=== PATIENT | female | born 1975 | race Caucasian/White ===

== ENCOUNTER 2017-02-02 18:26 | Emergency (ER) | payer MEDICAID ==
[~2017-02-02] VITALS: Ht 157.5 cm; Wt 75.0 kg
[~2017-02-02 18:26] MED LIST: ALBUTEROL; DEPO PROVERA
[2017-02-02] MEDS ORDERED: IPRATROPIUM BROMIDE (0.02%) 0.5MG/2.5ML NEB HHN STA (19:19)
[2017-02-02] MEDS ORDERED: PREDNISONE 20MG TABLET PO STA (19:19)
[2017-02-02] MEDS ORDERED: ALBUTEROL (0.083%) 2.5MG/3ML NEB HHN STA ×2 (19:19→19:55)
[2017-02-02 22:40] VITALS: BP 126/75
== END 2017-02-02 23:27 | disposition home or self-care (01) ==
LOC: ER 20:50
DX: J18.9 Pneumonia, unspecified organism (principal); J45.909 Unspecified asthma, uncomplicated
CPT/HCPCS: 71010; 81025; 94640; 94644; 99285; J7512; J7611; Z7610

== ENCOUNTER 2018-05-29 18:27 | Emergency (ER) | payer MEDICAID, OTHER ==
[~2018-05-29] VITALS: Ht 149.9 cm; Wt 75.0 kg
[2018-05-29] MEDS ORDERED: IPRATROPIUM BROMIDE (0.02%) 0.5MG/2.5ML NEB HHN STA ×2 (18:56→22:28)
[2018-05-29] MEDS ORDERED: ALBUTEROL (0.083%) 2.5MG/3ML NEB HHN STA ×2 (18:56→22:28)
[2018-05-29] MEDS ORDERED: PREDNISONE 20MG TABLET PO STA (22:28)
[2018-05-30 01:02] VITALS: BP 130/79
== END 2018-05-30 01:04 | disposition home or self-care (01) ==
LOC: ER 18:27
DX: O26.891 Other specified pregnancy related conditions, first trimester (principal); J45.901 Unspecified asthma with (acute) exacerbation; Z3A.11 11 weeks gestation of pregnancy
CPT/HCPCS: 81025; 94640; 99284; J7512; J7611

== ENCOUNTER 2018-08-01 18:22 | Observation (INO) | payer OTHER ==
[~2018-08-01] VITALS: Ht 154.9 cm; Wt 76.7 kg
[2018-08-01] MEDS ORDERED: ACETAMINOPHEN 650MG/20.3ML UDC PO PRN (20:15)
[2018-08-01] MEDS ORDERED: DIPHENHYDRAMINE 25MG CAPSULE PO PRN (20:15)
[2018-08-01] MEDS ORDERED: DEXT 5%/LACTATED RINGERS 1,000 ML IV SCH (20:30)
[2018-08-01] MEDS ORDERED: AMPICILLIN 2,000 MG in SODIUM CHLORIDE 0.9% 100 ML IV NR (21:00)
[2018-08-01 21:31] LABS: BASOPHILS % 0.3 % (0.0-2.0); EOSINOPHILS % 1.2 % (0.0-5.0); HEMATOCRIT. 36.3 % (36.0-48.0); HEMOGLOBIN. 12.4 g/dL (12.0-16.0); LYMPHOCYTES % 16.3 % (20.0-50.0); MEAN CORPUSCULAR HEMOGLOBIN 29.1 pg (28.0-32.0); MEAN CORPUSCULAR VOLUME 85.5 fL (81.0-99.0); MEAN PLATELET VOLUME 9.4 fl (7.4-10.4); MONOCYTES % 5.7 % (2.0-8.0); NEUTROPHILS % 76.5 % (40.0-76.0); PLATELET 196 x1000/uL (130-400); RED BLOOD CELL COUNT 4.25 mill/uL (4.2-5.4); RED CELL DISTRIBUTION WIDTH 14.1 % (11.6-14.6)
[2018-08-01 21:35] LABS: CLARITY URINE CLEAR (CLEAR); COLOR URINE YELLOW (YELLOW); KETONES URINE NEGATIVE (NEGATIVE); LEUKOCYTE ESTERASE URINE 2+ (NEGATIVE); NITRITE URINE NEGATIVE (NEGATIVE); OCCULT BLOOD URINE 1+ (NEGATIVE); PH URINE 5.5 (4.5-8.0); PROTEIN URINE 1+ (NEGATIVE); SPECIFIC GRAVITY URINE 1.018 (1.005-1.030)
[2018-08-01 21:39] LABS: PARTIAL THROMBOPLASTIN TIME 27.5 sec (23.4-31.0); PROTHROMBIN TIME 9.6 sec (9.1-11.1)
[2018-08-01 21:40] LABS: CHLORIDE 105 mEq/L (98-107)
[2018-08-01 21:45] LABS: *COCAINE SCREEN URINE NEGATIVE (NEGATIVE); METHADONE URINE SCREEN NEGATIVE (NEGATIVE)
[2018-08-01 21:46] LABS: *AMPHETAMINES SCREEN URINE NEGATIVE (NEGATIVE); *BARBITURATES SCREEN URINE NEGATIVE (NEGATIVE); *BENZODIAZEPINES SCREEN URINE NEGATIVE (NEGATIVE); CANNABINOID URINE SCREEN NEGATIVE (NEGATIVE); OPIATES URINE SCREEN NEGATIVE (NEGATIVE); PHENCYCLIDINE URINE SCREEN NEGATIVE (NEGATIVE)
[2018-08-01] MEDS ORDERED: AZITHROMYCIN 500 MG in DEXT 5% WATER 250 ML IV SCH (22:00)
[2018-08-01 22:14] LABS: HEPATITIS B SURFACE ANTIGEN NEGATIVE
[2018-08-01] MEDS ORDERED: PNV1TABL50 PO (22:37)
== END 2018-08-01 23:15 | disposition home or self-care (01) ==
LOC: L&D 18:22
PROVIDERS: ADMIT Specialist; ATTEND Specialist
DX: O42.912 Preterm premature rupture of membranes, unspecified as to length of time between rupture and onset of labor, second trimester (principal); O99.512 Diseases of the respiratory system complicating pregnancy, second trimester; J45.909 Unspecified asthma, uncomplicated; O09.522 Supervision of elderly multigravida, second trimester; O26.892 Other specified pregnancy related conditions, second trimester; R79.1 Abnormal coagulation profile; R77.2 Abnormality of alphafetoprotein; Z3A.23 23 weeks gestation of pregnancy
CPT/HCPCS: 36415; 76815; 76817; 80053; 80305; 81003; 85025; 85610; 85730; 86592; 86703; 86762; 86850; 86900; 86901; 87340; 96365; 96367; G0378; J0290; J0456; J7050; J7060; J7120

== ENCOUNTER 2019-08-05 21:54 | Inpatient (IN) | payer SELFPAY ==
[~2019-08-05] VITALS: Ht 152.4 cm; Wt 82.6 kg
[~2019-08-05 21:54] MED LIST changes: -ALBUTEROL; -DEPO PROVERA; +PNV1TABL50 PO
[2019-08-05] MEDS ORDERED: IPRATROPIUM BROMIDE (0.02%) 0.5MG/2.5ML NEB HHN STA (23:20)
[2019-08-05] MEDS ORDERED: SODIUM CHLORIDE 0.9% 1,000 ML IV ONE (23:20)
[2019-08-05] MEDS ORDERED: METHYLPREDNISOLONE SOD SUCC 125 MG/2 ML VIAL IV STA (23:20)
[2019-08-05] MEDS: ALBUTEROL (0.083%) 2.5MG/3ML NEB HHN SCH (23:30)
[2019-08-05] MEDS ORDERED: MAGNESIUM 2 G PREMIX 50 ML IV ONE (23:30)
[2019-08-06 00:01] LABS: BASOPHILS % 0.3 % (0.0-2.0); EOSINOPHILS % 5.3 % (0.0-5.0); HEMATOCRIT. 36.5 % (36.0-48.0); HEMOGLOBIN. 12.1 g/dL (12.0-16.0); LYMPHOCYTES % 22.8 % (20.0-50.0); MEAN CORPUSCULAR VOLUME 81.4 fL (81.0-99.0); MONOCYTES % 5.3 % (2.0-8.0); NEUTROPHILS % 66.3 % (40.0-76.0); RED BLOOD CELL COUNT 4.48 mill/uL (4.2-5.4); RED CELL DISTRIBUTION WIDTH 15.4 % (11.6-14.6)
[2019-08-06 00:07] LABS: CHLORIDE 108 mEq/L (98-107)
[2019-08-06 00:13] LABS: PLATELET 229 x1000/uL (130-400)
[2019-08-06 00:14] LABS: MEAN PLATELET VOLUME 8.4 fl (7.4-10.4)
[2019-08-06] MEDS: ALBUTEROL (0.083%) 2.5MG/3ML NEB HHN SCH ×2 (00:30)
[2019-08-06 02:50] LABS: BG BASE EXCESS -0.5 mmol/L (-2.0-2.0); BG CARBOXYHEMOGLOBIN 0.5 % (0.5-1.5); BG DEOXYHEMOGLOBIN 2.4 % (0.0-5.0); BG FRACTION INSPIRED OXYGEN 28; BG METHEMOGLOBIN 0.1 % (0.0-1.5); BG OXYGEN SATURATION 97.6 % (92.0-98.5); BG PCO2 38.9 mmHg (35.0-45.0); BG PH 7.408 (7.350-7.450); BG PO2 103.3 mmHg (75.0-100.0); BG SAMPLE SITE RIGHT RADIAL; BG TOTAL HEMOGLOBIN 12.5 g/dL (12.0-18.0); BG VENT MODE NASAL CANNULA
[2019-08-06] MEDS ORDERED: ACETAMINOPHEN 325MG TABLET PO PRN (03:30)
[2019-08-06] MEDS ORDERED: MAGNESIUM/ALUMINUM HYDROXIDE/SIMETHICONE 30ML UDC PO PRN (03:30)
[2019-08-06] MEDS ORDERED: GUAIFENESIN 200MG/10ML SUGAR FREE UDC PO PRN (03:30)
[2019-08-06] MEDS ORDERED: ONDANSETRON HCL 4MG/2ML INJ IV PRN (03:30)
[2019-08-06] MEDS ORDERED: DOCUSATE SODIUM 100MG CAPSULE PO PRN (03:30)
[2019-08-06] MEDS ORDERED: HYDROCODONE/ACETAMINOPHEN 5/325MG TABLET PO PRN (03:30)
[2019-08-06] MEDS ORDERED: IPRATROPIUM/ALBUTEROL 0.5-3(2.5)MG/3ML NEB NEB PRN (03:30)
[2019-08-06] MEDS ORDERED: CLONIDINE 0.1MG TABLET PO PRN (03:30)
[2019-08-06 03:51] VITALS: BP 114/73
[2019-08-06 03:52] VITALS: BP 114/73
[2019-08-06] MEDS ORDERED: ALBU6.7H IH (04:11)
[2019-08-06] MEDS ORDERED: PRED10TA PO (04:11)
[2019-08-06] MEDS ORDERED: LEVOFLOXACIN 500MG PREMIX 100 ML IV SCH (06:00)
[2019-08-06] MEDS: METHYLPREDNISOLONE SOD SUCC 125 MG/2 ML VIAL IV SCH ×2 (06:02→12:39)
[2019-08-06 08:00] VITALS: BP 112/65
[2019-08-06] MEDS ORDERED: ENOXAPARIN 40MG/0.4ML SYR SUBCUT SCH (09:00)
[2019-08-06] MEDS: IPRATROPIUM/ALBUTEROL 0.5-3(2.5)MG/3ML NEB NEB SCH ×2 (09:33→13:40)
[2019-08-06 12:00] VITALS: BP 105/65
[2019-08-06 14:51] VITALS: BP 105/65
== END 2019-08-06 15:21 | disposition home or self-care (01) | DRG 141 ==
LOC: ER 21:54 → 7WST 08-06 00:44 → EDBEDREQ 08-06 00:46 → EDBEDREQTM 08-06 00:46 → EDBEDREQDT 08-06 00:46 → ENRESERV 08-06 02:23
PROVIDERS: ADMIT Hospitalist; ATTEND Hospitalist
DX: J45.902 Unspecified asthma with status asthmaticus (principal); Z79.899 Other long term (current) drug therapy; Z82.5 Family history of asthma and other chronic lower respiratory diseases
CPT/HCPCS: 36415; 36600; 71045; 82375; 82805; 84484; 93005; 93970; 94640; 99285; J1650; J1956; J2930; J3475; J7030; J7611; J7620

== ENCOUNTER 2021-01-25 22:47 | Emergency (ER) | payer MEDICAID ==
[~2021-01-25] VITALS: Ht 154.9 cm; Wt 78.0 kg
[~2021-01-25 22:47] MED LIST changes: +ALBU6.7H11 IH; -PNV1TABL50 PO; +PRED10TA PO
[2021-01-25] MEDS ORDERED: IPRATROPIUM BROMIDE (0.02%) 0.5MG/2.5ML NEB HHN STA (23:12)
[2021-01-25] MEDS ORDERED: MAGNESIUM GLUCONATE 500MG TABLET PO SCH (23:15)
[2021-01-25 23:39] LABS: BASOPHILS % 0.5 % (0.0-2.0); EOSINOPHILS % 4.8 % (0.0-5.0); HEMATOCRIT. 38.7 % (36.0-48.0); HEMOGLOBIN. 12.9 g/dL (12.0-16.0); LYMPHOCYTES % 21.6 % (20.0-50.0); MEAN CORPUSCULAR HEMOGLOBIN 26.6 pg (28.0-32.0); MEAN CORPUSCULAR VOLUME 80.2 fL (81.0-99.0); MEAN PLATELET VOLUME 8.6 fl (7.4-10.4); MONOCYTES % 5.5 % (2.0-8.0); NEUTROPHILS % 67.6 % (40.0-76.0); PLATELET 271 x1000/uL (130-400); RED BLOOD CELL COUNT 4.83 mill/uL (4.2-5.4)
[2021-01-25 23:45] LABS: CHLORIDE 108 mEq/L (98-107)
[2021-01-25] MEDS: ALBUTEROL (0.083%) 2.5MG/3ML NEB HHN SCH (23:59)
[2021-01-26] MEDS: ALBUTEROL (0.083%) 2.5MG/3ML NEB HHN SCH ×2 (00:30→01:01)
[2021-01-26 01:15] VITALS: BP 121/76
[2021-01-26] MEDS ORDERED: PREDNISONE 20MG TABLET PO ONE (01:15)
== END 2021-01-26 01:45 | disposition home or self-care (01) ==
LOC: ER 22:47
DX: J45.901 Unspecified asthma with (acute) exacerbation (principal); F17.290 Nicotine dependence, other tobacco product, uncomplicated
CPT/HCPCS: 36415; 71045; 80053; 83880; 84484; 85025; 85379; 94640; 99285; J7512; Z7610

== ENCOUNTER 2021-03-01 07:31 | Emergency (ER) | payer MEDICAID, OTHER ==
[~2021-03-01] VITALS: Ht 152.4 cm; Wt 77.0 kg
[2021-03-01] MEDS ORDERED: PREDNISONE 20MG TABLET PO STA (07:52)
[2021-03-01] MEDS ORDERED: ALBUTEROL (0.083%) 2.5MG/3ML NEB HHN STA (07:52)
[2021-03-01] MEDS ORDERED: IPRATROPIUM BROMIDE (0.02%) 0.5MG/2.5ML NEB HHN STA (07:52)
[2021-03-01] MEDS ORDERED: ALBU6.7H9 INH (09:48)
[2021-03-01] MEDS ORDERED: P50 PO (09:48)
[2021-03-01] MEDS ORDERED: ALBU05 NEB (09:48)
[2021-03-01 10:03] VITALS: BP 122/72
== END 2021-03-01 10:04 | disposition home or self-care (01) ==
LOC: ER 07:31
DX: J45.901 Unspecified asthma with (acute) exacerbation (principal); Z79.899 Other long term (current) drug therapy
CPT/HCPCS: 71045; 81025; 99283; J7512; Z7610

== ENCOUNTER 2021-03-19 00:38 | Emergency (ER) | payer OTHER ==
[~2021-03-19] VITALS: Ht 154.9 cm; Wt 77.0 kg
[~2021-03-19 00:38] MED LIST changes: +ALBU05 NEB; +ALBU6.7H9 INH; +P50 PO
[2021-03-19] MEDS ORDERED: METHYLPREDNISOLONE SOD SUCC 125 MG/2 ML VIAL IV STA (01:04)
[2021-03-19] MEDS ORDERED: IPRATROPIUM BROMIDE (0.02%) 0.5MG/2.5ML NEB HHN STA (01:04)
[2021-03-19] MEDS: ALBUTEROL (0.083%) 2.5MG/3ML NEB HHN SCH ×3 (02:19→02:21)
[2021-03-19] MEDS ORDERED: P50 MT (02:57)
[2021-03-19 03:14] VITALS: BP 126/86
== END 2021-03-19 03:43 | disposition home or self-care (01) ==
LOC: ER 00:42
DX: J45.901 Unspecified asthma with (acute) exacerbation (principal)
CPT/HCPCS: 71045; 94640; 96374; 99283; J2930; Z7610

== ENCOUNTER 2021-08-25 16:53 | Emergency (ER) | payer OTHER ==
[~2021-08-25] VITALS: Ht 154.9 cm; Wt 78.0 kg
[~2021-08-25 16:53] MED LIST changes: -ALBU6.7H11 IH; +ALBU6.7H15 IH; +P50 MT
[2021-08-25] MEDS ORDERED: ALBUTEROL (0.083%) 2.5MG/3ML NEB HHN STA (17:10)
[2021-08-25] MEDS ORDERED: METHYLPREDNISOLONE SOD SUCC 125 MG/2 ML VIAL IM STA (17:10)
[2021-08-25] MEDS ORDERED: IPRATROPIUM BROMIDE (0.02%) 0.5MG/2.5ML NEB HHN STA (17:10)
[2021-08-25] MEDS ORDERED: IPRATROPIUM BROMIDE (0.02%) 0.5MG/2.5ML NEB HHN ONE (17:30)
[2021-08-25] MEDS ORDERED: ALBUTEROL (0.083%) 2.5MG/3ML NEB HHN ONE (17:30)
[2021-08-25] MEDS ORDERED: PREDNISONE 20MG TABLET PO ONE (17:30)
[2021-08-25] MEDS ORDERED: ALBU6.7H9 INH (19:04)
[2021-08-25] MEDS ORDERED: P50 MT (19:04)
[2021-08-25] MEDS ORDERED: ALBU05 NEB (19:04)
[2021-08-25 21:35] VITALS: BP 116/68
== END 2021-08-25 21:39 | disposition home or self-care (01) ==
LOC: ER 16:53
DX: J45.901 Unspecified asthma with (acute) exacerbation (principal); Z79.899 Other long term (current) drug therapy
CPT/HCPCS: 93005; 94644; 96372; 99285; J2930; J7512; Z7610

== ENCOUNTER 2021-09-05 13:43 | Emergency (ER) | payer OTHER ==
[~2021-09-05] VITALS: Ht 154.9 cm; Wt 78.0 kg
[2021-09-05] MEDS ORDERED: IPRATROPIUM/ALBUTEROL 0.5-3(2.5)MG/3ML NEB HHN ONE (14:00)
[2021-09-05] MEDS ORDERED: DEXAMETHASONE 4MG TABLET PO ONE (14:00)
[2021-09-05] MEDS ORDERED: P50 MT (14:59)
[2021-09-05] MEDS ORDERED: AZIT250T12 MT (14:59)
[2021-09-05] MEDS ORDERED: ALBU6.7H15 INH (15:36)
[2021-09-05 15:39] VITALS: BP 138/66
== END 2021-09-05 15:20 | disposition home or self-care (01) ==
LOC: ER 14:07
DX: J45.901 Unspecified asthma with (acute) exacerbation (principal); Z79.899 Other long term (current) drug therapy
CPT/HCPCS: 71045; 81025; 93005; 94640; 99283; Z7610; J8540

== ENCOUNTER 2021-10-06 20:07 | Emergency (ER) | payer OTHER ==
[~2021-10-06] VITALS: Ht 154.9 cm; Wt 77.0 kg
[~2021-10-06 20:07] MED LIST changes: +ALBU6.7H15 INH; +AZIT250T12 MT
[2021-10-06] MEDS ORDERED: PREDNISONE 20MG TABLET PO STA (22:43)
[2021-10-06] MEDS ORDERED: IPRATROPIUM BROMIDE (0.02%) 0.5MG/2.5ML NEB HHN STA (22:43)
[2021-10-06] MEDS ORDERED: ALBUTEROL (0.083%) 2.5MG/3ML NEB HHN STA (22:43)
[2021-10-07 01:11] VITALS: BP 123/76
[2021-10-07] MEDS ORDERED: P50 MT (01:21)
[2021-10-07] MEDS ORDERED: ALBU05 NEB (01:21)
[2021-10-07] MEDS ORDERED: ALBU6.7H9 INH (01:21)
== END 2021-10-07 01:33 | disposition home or self-care (01) ==
LOC: ER 20:07
DX: J45.901 Unspecified asthma with (acute) exacerbation (principal); Z79.899 Other long term (current) drug therapy
CPT/HCPCS: 71045; 93005; 94640; 99283; J7512

== ENCOUNTER 2021-11-05 14:39 | Emergency (ER) | payer OTHER ==
[~2021-11-05] VITALS: Ht 154.9 cm; Wt 77.7 kg
[2021-11-05 14:45] VITALS: BP 129/90
[2021-11-05] MEDS ORDERED: IPRATROPIUM BROMIDE (0.02%) 0.5MG/2.5ML NEB HHN STA (15:18)
[2021-11-05] MEDS ORDERED: PREDNISONE 20MG TABLET PO STA (15:18)
[2021-11-05] MEDS ORDERED: ALBUTEROL (0.083%) 2.5MG/3ML NEB HHN STA (15:18)
[2021-11-05] MEDS ORDERED: ALBU6.7H15 IH (18:09)
[2021-11-05] MEDS ORDERED: P50 MT (18:09)
== END 2021-11-05 18:33 | disposition home or self-care (01) ==
LOC: ER 14:39
DX: J45.901 Unspecified asthma with (acute) exacerbation (principal)
CPT/HCPCS: 71045; 94640; 99283; J7512; Z7610

== ENCOUNTER 2022-05-09 19:37 | Emergency (ER) | payer OTHER ==
[~2022-05-09] VITALS: Ht 149.9 cm; Wt 79.0 kg
[2022-05-09 20:01] VITALS: BP 124/75
[2022-05-09] MEDS ORDERED: ALBU6.7H9 INH (21:19)
[2022-05-09] MEDS ORDERED: P50 MT (21:19)
[2022-05-09] MEDS ORDERED: ATROV INH (21:19)
== END 2022-05-09 21:52 | disposition home or self-care (01) ==
LOC: ER 19:37
DX: J45.909 Unspecified asthma, uncomplicated (principal); Z86.16 Personal history of COVID-19
CPT/HCPCS: 99281

== ENCOUNTER 2022-06-02 07:09 | Emergency (ER) | payer MEDICAID, OTHER ==
[~2022-06-02] VITALS: Ht 149.9 cm; Wt 79.0 kg
[~2022-06-02 07:09] MED LIST changes: +ATROV INH
[2022-06-02] MEDS ORDERED: METHYLPREDNISOLONE SOD SUCC 125 MG/2 ML VIAL IV STA (07:29)
[2022-06-02] MEDS ORDERED: MAGNESIUM 2 G PREMIX 50 ML IV STA (07:29)
[2022-06-02] MEDS ORDERED: ALBUTEROL (0.083%) 2.5MG/3ML NEB HHN STA (07:29)
[2022-06-02] MEDS ORDERED: IPRATROPIUM BROMIDE (0.02%) 0.5MG/2.5ML NEB HHN STA (07:29)
[2022-06-02 08:00] VITALS: BP 125/71
[2022-06-02] MEDS ORDERED: ALBU05 NEB (09:09)
[2022-06-02] MEDS ORDERED: ALBU6.7H9 INH (09:09)
[2022-06-02] MEDS ORDERED: P50 PO (09:09)
== END 2022-06-02 09:39 | disposition home or self-care (01) ==
LOC: ER 07:09
DX: J45.901 Unspecified asthma with (acute) exacerbation (principal); R00.0 Tachycardia, unspecified
CPT/HCPCS: 71045; 93005; 94644; 96365; 96375; 99285; J2930; J3475; Z7610

== ENCOUNTER 2022-06-15 20:37 | Emergency (ER) | payer MEDICAID, OTHER ==
[~2022-06-15] VITALS: Ht 152.4 cm; Wt 80.0 kg
[2022-06-15] MEDS ORDERED: ALBUTEROL (0.083%) 2.5MG/3ML NEB HHN STA (21:09)
[2022-06-15] MEDS ORDERED: IPRATROPIUM BROMIDE (0.02%) 0.5MG/2.5ML NEB HHN STA (21:09)
[2022-06-15] MEDS ORDERED: PREDNISONE 20MG TABLET PO STA (21:09)
[2022-06-15] MEDS ORDERED: P20 MT (23:37)
[2022-06-16 01:00] VITALS: BP 121/69
[2022-06-16] MEDS ORDERED: ALBUTEROL (0.5%) 2.5MG/0.5ML NEB HHN ONE (01:00)
== END 2022-06-16 01:10 | disposition home or self-care (01) ==
LOC: ER 20:37
DX: J45.901 Unspecified asthma with (acute) exacerbation (principal)
CPT/HCPCS: 71045; 94640; 99283; J7512; Z7610

== ENCOUNTER 2022-07-05 19:14 | Emergency (ER) | payer OTHER ==
[~2022-07-05] VITALS: Ht 152.4 cm; Wt 77.0 kg
[~2022-07-05 19:14] MED LIST changes: +P20 MT
[2022-07-05 19:16] VITALS: BP 144/85
[2022-07-05] MEDS ORDERED: ALBUTEROL (0.083%) 2.5MG/3ML NEB HHN STA (21:29)
[2022-07-05] MEDS ORDERED: IPRATROPIUM BROMIDE (0.02%) 0.5MG/2.5ML NEB HHN STA (21:29)
[2022-07-05] MEDS ORDERED: DEXAMETHASONE 4MG/ML 1ML VIAL IM ONE (21:30)
== END 2022-07-06 01:17 | disposition home or self-care (01) ==
LOC: ER 19:14
DX: R06.02 Shortness of breath (principal); J45.909 Unspecified asthma, uncomplicated; Z79.899 Other long term (current) drug therapy
CPT/HCPCS: 94640; 96372; 99283; J1100; Z7610

== ENCOUNTER 2022-10-30 23:13 | Emergency (ER) | payer OTHER ==
[~2022-10-30] VITALS: Ht 154.9 cm; Wt 77.0 kg
[~2022-10-30 23:13] MED LIST changes: +ALBU6.7H3 INH; -ALBU6.7H9 INH
[2022-10-30] MEDS ORDERED: METHYLPREDNISOLONE SOD SUCC 125 MG/2 ML VIAL IV STA (23:38)
[2022-10-30] MEDS ORDERED: MAGNESIUM 2 G PREMIX 50 ML IV STA (23:38)
[2022-10-30] MEDS ORDERED: ALBUTEROL (0.083%) 2.5MG/3ML NEB HHN STA (23:38)
[2022-10-30] MEDS ORDERED: IPRATROPIUM BROMIDE (0.02%) 0.5MG/2.5ML NEB HHN STA (23:38)
[2022-10-31 02:00] VITALS: BP 131/68
[2022-10-31] MEDS ORDERED: PRED10TA MT (02:38)
== END 2022-10-31 03:18 | disposition home or self-care (01) ==
LOC: ER 23:13
DX: J45.901 Unspecified asthma with (acute) exacerbation (principal); R03.0 Elevated blood-pressure reading, without diagnosis of hypertension
CPT/HCPCS: 71045; 94640; 96365; 96366; 96375; 99284; J2930; J3475; Z7610

== ENCOUNTER 2024-02-03 15:38 | Emergency (ER) | payer MEDICAID, OTHER ==
[~2024-02-03] VITALS: Ht 152.4 cm; Wt 81.0 kg
[~2024-02-03 15:38] MED LIST changes: +PRED10TA MT
[2024-02-03] MEDS: IPRATROPIUM BROMIDE (0.02%) 0.5MG/2.5ML NEB HHN STA (16:19)
[2024-02-03 16:20] VITALS: PULSE 94; RESP 18; O2SAT 98
[2024-02-03] MEDS: METHYLPREDNISOLONE SOD SUCC 125MG/2ML (ACT-O-VIAL) IV STA (16:27)
[2024-02-03] MEDS: MAGNESIUM 2 G PREMIX 50 ML IV ONE (16:27)
[2024-02-03 16:41] VITALS: PULSE 94; RESP 18; O2SAT 99
[2024-02-03] MEDS: ALBUTEROL (0.083%) 2.5MG/3ML NEB HHN SCH (16:41)
[2024-02-03 17:32] VITALS: PULSE 100; RESP 18; O2SAT 94
[2024-02-03 18:04] LABS: BASOPHILS % 0.2 % (0.0-2.0); DIFFERENTIAL COMMENT 0; EOSINOPHILS % 2.5 % (0.0-5.0); HEMATOCRIT. 37.2 % (36.0-48.0); HEMOGLOBIN. 11.8 g/dL (12.0-16.0); LYMPHOCYTES % 10.6 % (20.0-50.0); MEAN CORPUSCULAR HEMOGLOBIN 24.2 pg (28.0-32.0); MEAN CORPUSCULAR HGB CONC 31.8 g/dL (31.0-37.0); MEAN CORPUSCULAR VOLUME 76.1 fL (81.0-99.0); MEAN PLATELET VOLUME 8.7 fl (7.4-10.4); MONOCYTES % 2.4 % (2.0-8.0); NEUTROPHILS % 84.3 % (40.0-76.0); PLATELET 268 x1000/uL (130-400); RED BLOOD CELL COUNT 4.89 mill/uL (4.2-5.4); RED CELL DISTRIBUTION WIDTH 15.9 % (11.6-14.6); WHITE BLOOD COUNT 11.3 x1000/uL (4.5-11.0)
[2024-02-03 18:11] LABS: CHLORIDE 109 mEq/L (98-107); POTASSIUM 3.6 mEq/L (3.5-5.1); SODIUM 140 mEq/L (136-145)
[2024-02-03 18:12] LABS: CARBON DIOXIDE 24 mEq/L (21-32)
[2024-02-03 18:13] LABS: CALCIUM 9.2 mg/dL (8.7-10.4)
[2024-02-03 18:17] LABS: CREATININE 0.7 mg/dL (0.6-1.0); GLUCOSE 125 mg/dL (70-105)
[2024-02-03 18:18] LABS: TROPONIN I HIGH SENSITIVITY 14 ng/L (3.0-34); UREA NITROGEN BLOOD 12 mg/dL (9-23)
[2024-02-03 18:20] VITALS: PULSE 96; RESP 18; O2SAT 98
[2024-02-03 18:22] VITALS: BP 120/74; PULSE 98; RESP 20; TEMP 98
[2024-02-03] MEDS ORDERED: P50 MT (19:33)
[2024-02-03] MEDS ORDERED: ALBU05 NEB (19:33)
== END 2024-02-03 20:50 | disposition home or self-care (01) ==
LOC: ER 15:38
DX: J45.909 Unspecified asthma, uncomplicated (principal); F19.90 Other psychoactive substance use, unspecified, uncomplicated; Z91.018 Allergy to other foods
CPT/HCPCS: 80048; 81025; 85025; 84484; 36415; 71045; 94640; 93005; 96365; 96375; 99285; J3475; J2919; Z7610 ×5

== ENCOUNTER 2024-02-13 09:58 | Emergency (ER) | payer MEDICAID ==
[~2024-02-13] VITALS: Ht 154.9 cm; Wt 74.0 kg
[~2024-02-13 09:58] MED LIST changes: -ALBU6.7H15 IH; -ALBU6.7H15 INH; -ALBU6.7H3 INH; -ATROV INH; -AZIT250T12 MT; -P20 MT; -P50 PO; -PRED10TA MT; -PRED10TA PO
[2024-02-13 10:18] VITALS: O2SAT 100
[2024-02-13] MEDS: METHYLPREDNISOLONE SOD SUCC 125MG/2ML (ACT-O-VIAL) IM STA (10:44)
[2024-02-13 11:05] VITALS: PULSE 87; RESP 20
[2024-02-13] MEDS: ALBUTEROL (0.083%) 2.5MG/3ML NEB HHN STA (11:05)
[2024-02-13] MEDS ORDERED: P50 MT (11:32)
[2024-02-13] MEDS ORDERED: ALBU18HF2 IH (11:32)
[2024-02-13 12:07] VITALS: BP 130/68; PULSE 100; RESP 20; TEMP 98.2
== END 2024-02-13 12:08 | disposition home or self-care (01) ==
LOC: ER 09:58
DX: J45.901 Unspecified asthma with (acute) exacerbation (principal); J18.8 Other pneumonia, unspecified organism
CPT/HCPCS: 71045; 94640; 96372; 99283; J2930; Z7610 ×3; J2919

== ENCOUNTER 2024-03-16 10:52 | Emergency (ER) | payer MEDICAID ==
[~2024-03-16] VITALS: Ht 154.9 cm; Wt 74.8 kg
[~2024-03-16 10:52] MED LIST changes: +ALBU18HF2 IH
[2024-03-16] MEDS: DEXAMETHASONE 4MG TABLET PO ONE (11:15)
[2024-03-16] MEDS: IPRATROPIUM/ALBUTEROL 0.5-3(2.5)MG/3ML NEB HHN STA (11:46)
[2024-03-16 12:00] VITALS: PULSE 89; RESP 16; O2SAT 98
[2024-03-16] MEDS: IPRATROPIUM/ALBUTEROL 0.5-3(2.5)MG/3ML NEB HHN ONE (13:48)
[2024-03-16 14:00] VITALS: PULSE 82; RESP 16; O2SAT 98
[2024-03-16] MEDS ORDERED: ALBU18HF2 IH (14:26)
[2024-03-16] MEDS ORDERED: ALBU05 NEB (14:26)
[2024-03-16 14:41] VITALS: BP 128/75; PULSE 101; RESP 16; TEMP 98.7
== END 2024-03-16 15:14 | disposition home or self-care (01) ==
LOC: ER 12:23
DX: J45.901 Unspecified asthma with (acute) exacerbation (principal); Z88.8 Allergy status to other drugs, medicaments and biological substances
CPT/HCPCS: 94640; 99285; J8540; Z7610 ×3; 99284

== ENCOUNTER 2024-04-07 12:57 | Emergency (ER) | payer MEDICAID ==
[~2024-04-07] VITALS: Ht 152.4 cm; Wt 72.0 kg
[2024-04-07 13:01] VITALS: BP 134/81; TEMP 98.5
[2024-04-07 13:48] LABS: BASOPHILS % 0.5 % (0.0-2.0); DIFFERENTIAL COMMENT 0; EOSINOPHILS % 10.1 % (0.0-5.0); HEMATOCRIT. 37.3 % (36.0-48.0); HEMOGLOBIN. 11.9 g/dL (12.0-16.0); LYMPHOCYTES % 30.1 % (20.0-50.0); MEAN CORPUSCULAR HEMOGLOBIN 24.4 pg (28.0-32.0); MEAN CORPUSCULAR HGB CONC 31.9 g/dL (31.0-37.0); MEAN CORPUSCULAR VOLUME 76.7 fL (81.0-99.0); MEAN PLATELET VOLUME 8.6 fl (7.4-10.4); MONOCYTES % 7.5 % (2.0-8.0); NEUTROPHILS % 51.8 % (40.0-76.0); PLATELET 274 x1000/uL (130-400); RED BLOOD CELL COUNT 4.87 mill/uL (4.2-5.4); RED CELL DISTRIBUTION WIDTH 17.3 % (11.6-14.6)
[2024-04-07 13:54] LABS: CHLORIDE 109 mEq/L (98-107); POTASSIUM 4.5 mEq/L (3.5-5.1); SODIUM 142 mEq/L (136-145)
[2024-04-07 13:55] LABS: CARBON DIOXIDE 27 mEq/L (21-32)
[2024-04-07 14:00] LABS: CREATININE 0.7 mg/dL (0.6-1.0); GLUCOSE 99 mg/dL (70-105); UREA NITROGEN BLOOD 8 mg/dL (9-23)
[2024-04-07] MEDS: METHYLPREDNISOLONE SOD SUCC 125MG/2ML (ACT-O-VIAL) IM STA (14:09)
[2024-04-07 14:35] VITALS: PULSE 100; RESP 24; O2SAT 95
[2024-04-07] MEDS: ALBUTEROL (0.083%) 2.5MG/3ML NEB HHN STA ×2 (14:35→14:45)
[2024-04-07] MEDS: IPRATROPIUM BROMIDE (0.02%) 0.5MG/2.5ML NEB HHN STA ×2 (14:35→14:45)
[2024-04-07] MEDS ORDERED: FLUT200B INH (15:39)
[2024-04-07] MEDS ORDERED: ALBU18HF2 IH (15:39)
[2024-04-07] MEDS ORDERED: P50 MT (15:39)
== END 2024-04-07 15:48 | disposition home or self-care (01) ==
LOC: ER 12:57
DX: J45.901 Unspecified asthma with (acute) exacerbation (principal); Z91.018 Allergy to other foods
CPT/HCPCS: 80048; 85025; 36415; 71045; 94640; 96372; 99284; J2919; Z7610 ×4

== ENCOUNTER 2024-04-19 20:29 | Emergency (ER) | payer MEDICAID ==
[~2024-04-19] VITALS: Ht 160 cm; Wt 64.0 kg
[~2024-04-19 20:29] MED LIST changes: +FLUT200B INH
[2024-04-19 20:54] VITALS: O2SAT 89
[2024-04-19 22:05] VITALS: PULSE 82; RESP 18
[2024-04-19] MEDS: ALBUTEROL (0.083%) 2.5MG/3ML NEB HHN STA (22:09)
[2024-04-19] MEDS: IPRATROPIUM BROMIDE (0.02%) 0.5MG/2.5ML NEB HHN STA (22:09)
[2024-04-19] MEDS ORDERED: ALBU18HF2 IH (22:20)
[2024-04-19] MEDS ORDERED: ALBU05 NEB (22:20)
[2024-04-19 22:40] VITALS: BP 113/77; PULSE 100; RESP 18; TEMP 98
== END 2024-04-19 23:10 | disposition home or self-care (01) ==
LOC: ER 20:29
DX: J45.901 Unspecified asthma with (acute) exacerbation (principal); Z87.01 Personal history of pneumonia (recurrent); Z79.899 Other long term (current) drug therapy
CPT/HCPCS: 71045; 94640; 93005; 99283; Z7610 ×3

== ENCOUNTER 2024-04-27 11:00 | Emergency (ER) | payer MEDICAID ==
[~2024-04-27] VITALS: Ht 152.4 cm; Wt 73.0 kg
[2024-04-27] MEDS: MAGNESIUM 2 G PREMIX 50 ML IV ONE (11:42)
[2024-04-27] MEDS: METHYLPREDNISOLONE SOD SUCC 125MG/2ML (ACT-O-VIAL) IV STA (11:42)
[2024-04-27 12:01] VITALS: PULSE 91; RESP 20; O2SAT 96
[2024-04-27] MEDS: ALBUTEROL (0.083%) 2.5MG/3ML NEB HHN STA (12:01)
[2024-04-27] MEDS: IPRATROPIUM BROMIDE (0.02%) 0.5MG/2.5ML NEB HHN STA (12:01)
[2024-04-27] MEDS ORDERED: P50 MT (12:41)
[2024-04-27] MEDS ORDERED: ALBU6.7H15 INH (13:09)
[2024-04-27 13:28] VITALS: BP 131/88; PULSE 78; RESP 15; TEMP 98.5
== END 2024-04-27 13:29 | disposition home or self-care (01) ==
LOC: ER 11:00
DX: J45.901 Unspecified asthma with (acute) exacerbation (principal); Z79.899 Other long term (current) drug therapy
CPT/HCPCS: 71045; 94644; 96365; 96375; 93005; 99285; J3475; J2919; Z7610 ×5; 94640

== ENCOUNTER 2024-07-05 21:45 | Emergency (ER) | payer MEDICAID ==
[~2024-07-05] VITALS: Ht 149.9 cm; Wt 75.0 kg
[~2024-07-05 21:45] MED LIST changes: +ALBU6.7H15 INH
[2024-07-05 22:25] VITALS: PULSE 83; RESP 22; O2SAT 94
[2024-07-05] MEDS: IPRATROPIUM BROMIDE (0.02%) 0.5MG/2.5ML NEB HHN ONE (22:57)
[2024-07-05] MEDS: ALBUTEROL (0.083%) 2.5MG/3ML NEB HHN ONE (22:58)
[2024-07-06] MEDS ORDERED: ALBUTEROL (0.083%) 2.5MG/3ML NEB HHN ONE
[2024-07-06 00:28] LABS: BASOPHILS % 0.5 % (0.0-2.0); DIFFERENTIAL COMMENT 0; EOSINOPHILS % 4.9 % (0.0-5.0); HEMATOCRIT. 38.5 % (36.0-48.0); HEMOGLOBIN. 11.9 g/dL (12.0-16.0); LYMPHOCYTES % 35.5 % (20.0-50.0); MEAN CORPUSCULAR HEMOGLOBIN 23.9 pg (28.0-32.0); MEAN CORPUSCULAR HGB CONC 30.8 g/dL (31.0-37.0); MEAN CORPUSCULAR VOLUME 77.6 fL (81.0-99.0); MEAN PLATELET VOLUME 8.7 fl (7.4-10.4); MONOCYTES % 5.8 % (2.0-8.0); NEUTROPHILS % 53.3 % (40.0-76.0); PLATELET 271 x1000/uL (130-400); RED BLOOD CELL COUNT 4.96 mill/uL (4.2-5.4); RED CELL DISTRIBUTION WIDTH 15.1 % (11.6-14.6); WHITE BLOOD COUNT 10.1 x1000/uL (4.5-11.0)
[2024-07-06 00:40] LABS: CHLORIDE 110 mEq/L (98-107); POTASSIUM 4.1 mEq/L (3.5-5.1); SODIUM 143 mEq/L (136-145)
[2024-07-06 00:41] LABS: CARBON DIOXIDE 30 mEq/L (21-32)
[2024-07-06 00:46] LABS: CREATININE 0.7 mg/dL (0.6-1.0); GLUCOSE 98 mg/dL (70-105); UREA NITROGEN BLOOD 19 mg/dL (9-23)
[2024-07-06 01:00] VITALS: BP 148/75; TEMP 36.94740
[2024-07-06] MEDS: DEXAMETHASONE 4MG/ML 1ML VIAL IM ONE (02:01)
[2024-07-06] MEDS: DEXAMETHASONE 4MG/ML 1ML VIAL IM NR (02:15)
[2024-07-06 05:00] VITALS: O2SAT 96
[2024-07-06 06:00] VITALS: PULSE 92; RESP 22; O2SAT 96
[2024-07-06] MEDS ORDERED: ALBUTEROL (0.083%) 2.5MG/3ML NEB HHN NR (06:00)
== END 2024-07-06 07:48 | disposition left against medical advice (07) ==
LOC: ER 21:55 → EDBEDREQ 07-06 02:49 → EDBEDREQTM 07-06 02:49 → EDBEDREQSVC 07-06 02:49 → ER 07-06 07:48
DX: J45.901 Unspecified asthma with (acute) exacerbation (principal); R06.02 Shortness of breath; Z79.899 Other long term (current) drug therapy
CPT/HCPCS: 80048; 85025; 36415; 71045; 94640; 96372; 99285; Z7610 ×4; J1100

== ENCOUNTER 2024-09-05 15:39 | Emergency (ER) | payer MEDICAID ==
[~2024-09-05] VITALS: Ht 154.9 cm; Wt 76.0 kg
[2024-09-05] MEDS: DEXAMETHASONE 10 MG/ML VIAL PO ONE (16:22)
[2024-09-05] MEDS: ALBUTEROL (0.083%) 2.5MG/3ML NEB HHN ONE (16:31)
[2024-09-05 16:32] VITALS: PULSE 81; RESP 18; O2SAT 92
[2024-09-05 18:40] VITALS: PULSE 92; RESP 18; O2SAT 95
[2024-09-05] MEDS: IPRATROPIUM/ALBUTEROL 0.5-3(2.5)MG/3ML NEB HHN ONE (18:40)
[2024-09-05] MEDS ORDERED: ALBU2.5V13 NEB (19:18)
[2024-09-05] MEDS ORDERED: ALBU90AE INH (19:18)
[2024-09-05 21:25] VITALS: BP 130/79; PULSE 91; RESP 18; TEMP 36.94740; O2SAT 95
== END 2024-09-05 21:26 | disposition home or self-care (01) ==
LOC: ER 15:39
DX: J45.901 Unspecified asthma with (acute) exacerbation (principal); M54.30 Sciatica, unspecified side; Z88.8 Allergy status to other drugs, medicaments and biological substances
CPT/HCPCS: 94640; 99284; J1100; Z7610 ×3